=== PATIENT | male | born 1930 | race Caucasian/White ===

== ENCOUNTER 2016-11-25 19:11 | Inpatient (IN) | payer OTHER ==
[~2016-11-25] VITALS: Ht 157.5 cm; Wt 71.2 kg
[~2016-11-25 19:11] MED LIST: COUMADIN,JANTOVE2 MG PO; HYDROCHLOROTHIA25 MG PO; INDERAL10 MG PO; LIPITOR20 MG PO; NORVASC5 MG PO; PRILOSEC40 MG PO
[2016-11-25 20:40] LABS: BASOPHIL COUNT 0.1 K/uL (0-0.1); EOSINOPHIL (%) 2.2 % (0-5); EOSINOPHIL COUNT 0.2 K/uL (0-0.3); HEMATOCRIT 45.8 % (38.0-50.0); IMMATURE GRANULOCYTE (%) 0.7 % (0.0-0.7); IMMATURE GRANULOCYTE COUNT 0.1 K/uL; INSTRUMENT ABS NEUTROPHIL CT 6.7 K/uL; LYMPHOCYTE COUNT 0.9 K/uL (1.0-2.8); MCH 34.1 PG (29.0-34.0); MCHC 34.1 G/DL (30.0-36.0); MCV 100.2 FL (86-99); MEAN PLAT.VOLUME 11.1 uM^3 (9.0-12.4); MONOCYTE (%) 10.3 % (3-12); MONOCYTE COUNT 0.9 K/uL (0-0.8); NEUTROPHIL (%) 75.8 % (45-76); NEUTROPHIL COUNT 6.7 K/uL (1.8-6.4); PLATELET COUNT 263 K/uL (156-360); RBC DIS.WIDTH-CV 13.2 % (11.8-14.6); RBC DIS.WIDTH-SD 49.1 % (39-53); RED BLOOD COUNT 4.57 M/uL (4.00-5.50); WHITE BLOOD COUNT 8.9 K/uL (4.1-10.2)
[2016-11-25 20:50] LABS: CHLORIDE 100 mEq/L (99-109); POTASSIUM 4.1 mEq/L (3.7-5.4); SODIUM 138 mEq/L (136-147)
[2016-11-25 20:51] LABS: GLUCOSE 138 mg/dL (70-99)
[2016-11-25 20:53] LABS: ANION GAP 9 MEQ/L (2-14)
[2016-11-25 20:55] LABS: GFR ESTIMATE (CALCULATED) > 59 mL/min/
[2016-11-25 20:56] LABS: UREA NITROGEN (BUN) 19 mg/dL (9-23)
[2016-11-25 21:02] LABS: TROP-I INTERPRETATION NEGATIVE; TROPONIN-I 0.03 ng/mL (0.0-0.30)
[2016-11-26 00:02] LABS: INTER. NORMALIZED RATIO 3.8
[2016-11-26 00:05] LABS: PTT 56.2 SEC (25-37)
[2016-11-26 00:06] LABS: PROTHROMBIN TIME 44.5 SEC (10.2-12.9)
[2016-11-26] MEDS ORDERED: OMEPRAZOLE20 MG PO (00:10)
[2016-11-26] MEDS ORDERED: FUROSEMIDE40 MG PO (00:11)
[2016-11-26] MEDS ORDERED: LATANOPROST2.5 ML LEFT EYE (00:18)
[2016-11-26] MEDS ORDERED: TIMOLOL MALEATE15 M1 BOTH EYES (00:18)
[2016-11-26] MEDS ORDERED: WARFARIN SODIUM2 MG PO (00:19)
[2016-11-26] MEDS ORDERED: ADVIL200 MG PO (00:23)
[2016-11-26] MEDS ORDERED: POTASSIUM CHLO20 ME1 PO (00:25)
[2016-11-26 01:13] VITALS: BP 135/82
[2016-11-26 03:24] LABS: HEMATOCRIT 41.2 % (38.0-50.0); MCH 35.4 PG (29.0-34.0); MCHC 35.4 G/DL (30.0-36.0); MCV 99.8 FL (86-99); MEAN PLAT.VOLUME 11.3 uM^3 (9.0-12.4); PLATELET COUNT 256 K/uL (156-360); RBC DIS.WIDTH-CV 13.2 % (11.8-14.6); RBC DIS.WIDTH-SD 48.5 % (39-53); RED BLOOD COUNT 4.13 M/uL (4.00-5.50); WHITE BLOOD COUNT 12.3 K/uL (4.1-10.2)
[2016-11-26 03:35] LABS: CHLORIDE 102 mEq/L (99-109); POTASSIUM 3.7 mEq/L (3.7-5.4); SODIUM 140 mEq/L (136-147)
[2016-11-26 03:37] LABS: GLUCOSE 133 mg/dL (70-99)
[2016-11-26 03:38] LABS: ANION GAP 9 MEQ/L (2-14)
[2016-11-26 03:39] LABS: TOTAL BILIRUBIN 1.6 mg/dL (0.0-1.0)
[2016-11-26 03:40] LABS: ALKALINE PHOSPHATASE 160 IU/L (3-129)
[2016-11-26 03:41] LABS: GFR ESTIMATE (CALCULATED) > 59 mL/min/
[2016-11-26 03:42] LABS: UREA NITROGEN (BUN) 19 mg/dL (9-23)
[2016-11-26 03:46] LABS: TROP-I INTERPRETATION NEGATIVE; TROPONIN-I 0.03 ng/mL (0.0-0.30)
[2016-11-26 07:24] VITALS: BP 168/84
[2016-11-26 10:19] LABS: INTER. NORMALIZED RATIO 3.9; PROTHROMBIN TIME 45.8 SEC (10.2-12.9)
[2016-11-26 10:21] LABS: PTT 47.3 SEC (25-37)
[2016-11-26 11:12] VITALS: BP 150/83
[2016-11-26 11:22] LABS: TROP-I INTERPRETATION NEGATIVE; TROPONIN-I 0.04 ng/mL (0.0-0.30)
[2016-11-26 15:13] VITALS: BP 151/86
[2016-11-26 17:07] LABS: INFLUENZA A VIRAL ANTIGEN NEGATIVE; INFLUENZA B VIRAL ANTIGEN NEGATIVE
[2016-11-26 19:51] VITALS: BP 129/65
[2016-11-26 23:55] VITALS: BP 126/69
[2016-11-27 03:41] VITALS: BP 133/65
[2016-11-27 06:07] LABS: HEMATOCRIT 41.4 % (38.0-50.0); MCH 34.5 PG (29.0-34.0); MCHC 34.3 G/DL (30.0-36.0); MCV 100.7 FL (86-99); MEAN PLAT.VOLUME 11.3 uM^3 (9.0-12.4); PLATELET COUNT 253 K/uL (156-360); RBC DIS.WIDTH-CV 13.2 % (11.8-14.6); RED BLOOD COUNT 4.11 M/uL (4.00-5.50); WHITE BLOOD COUNT 10.3 K/uL (4.1-10.2)
[2016-11-27 06:33] LABS: ANION GAP 13 MEQ/L (2-14); CHLORIDE 98 MEQ/L (99-109); GFR ESTIMATE (CALCULATED) > 59 mL/min/; GLUCOSE 106 mg/dL (70-99); POTASSIUM 3.3 MEQ/L (3.7-5.4); SAMPLE HEMOLYSIS CHECK 0; SAMPLE ICTERIC CHECK 0; SAMPLE LIPEMIA CHECK 0; SODIUM 142 MEQ/L (136-147); UREA NITROGEN (BUN) 18 mg/dL (9-23)
[2016-11-27 07:19] VITALS: BP 154/68
[2016-11-27 08:14] LABS: INTERNAL CONTROL VALID? YES
[2016-11-27 10:45] LABS: INTER. NORMALIZED RATIO 2.9
[2016-11-27 10:48] LABS: PROTHROMBIN TIME 33.8 SEC (10.2-12.9)
[2016-11-27 11:15] VITALS: BP 134/87
[2016-11-27 15:15] VITALS: BP 134/64
[2016-11-27 19:44] VITALS: BP 148/64
[2016-11-28] VITALS: BP 117/63
[2016-11-28 03:24] VITALS: BP 142/66
[2016-11-28 06:45] LABS: MCH 34.4 PG (29.0-34.0); MCHC 33.8 G/DL (30.0-36.0); MCV 101.7 FL (86-99); MEAN PLAT.VOLUME 11.4 uM^3 (9.0-12.4); PLATELET COUNT 235 K/uL (156-360); RBC DIS.WIDTH-CV 13.2 % (11.8-14.6); RBC DIS.WIDTH-SD 50.2 % (39-53); RED BLOOD COUNT 4.13 M/uL (4.00-5.50); WHITE BLOOD COUNT 8.8 K/uL (4.1-10.2)
[2016-11-28 06:55] LABS: INTER. NORMALIZED RATIO 2.2; PROTHROMBIN TIME 25.2 SEC (10.2-12.9)
[2016-11-28 07:09] LABS: ANION GAP 8 MEQ/L (2-14); CHLORIDE 101 MEQ/L (99-109); GFR ESTIMATE (CALCULATED) > 59 mL/min/; GLUCOSE 100 mg/dL (70-99); LACTATE DEHYDROGENASE 213 IU/L (20-246); POTASSIUM 3.9 MEQ/L (3.7-5.4); SAMPLE HEMOLYSIS CHECK 0; SAMPLE ICTERIC CHECK 0; SAMPLE LIPEMIA CHECK 0; SODIUM 145 MEQ/L (136-147); UREA NITROGEN (BUN) 20 mg/dL (9-23)
[2016-11-28 08:06] VITALS: BP 122/64
[2016-11-28 11:44] LABS: TYPE OF FLUID PLEURAL
[2016-11-28 12:32] LABS: BODY FLUID EOSINOPHILS 32 % (0-25); BODY FLUID RBC'S < 1000 /MM^3 (0-100); BODY FLUID WBC'S 389 /MM^3 (0-500); COMMENT MANY MACROPHAGES AND MESOTHELIAL CELLS SEEN; MONONUCLEAR WBC'S 47 %; POLYNUCLEAR WBC'S 21 % (0-25)
[2016-11-28 12:41] LABS: BODY FLUID LDH 82 IU/L; BODY FLUID PROTEIN < 3.0 G/DL
[2016-11-28 15:40] VITALS: BP 127/75
[2016-11-28 16:47] LABS: BODY FLUID LDH 86 IU/L
[2016-11-28 20:07] VITALS: BP 125/72
[2016-11-29] VITALS (7 sets, daily range): BP systolic 108–136; BP diastolic 55–80
[2016-11-29 07:09] LABS: INTER. NORMALIZED RATIO 1.6; PROTHROMBIN TIME 17.9 SEC (10.2-12.9)
[2016-11-29 07:13] LABS: ANION GAP 8 MEQ/L (2-14); CHLORIDE 99 MEQ/L (99-109); GFR ESTIMATE (CALCULATED) > 59 mL/min/; GLUCOSE 107 mg/dL (70-99); POTASSIUM 3.5 MEQ/L (3.7-5.4); SAMPLE HEMOLYSIS CHECK 0; SAMPLE ICTERIC CHECK 0; SAMPLE LIPEMIA CHECK 0; SODIUM 142 MEQ/L (136-147); UREA NITROGEN (BUN) 29 mg/dL (9-23)
[2016-11-30 03:44] VITALS: BP 125/66
[2016-11-30 06:42] LABS: BASOPHIL COUNT 0.1 K/uL (0-0.1); EOSINOPHIL (%) 5.8 % (0-5); EOSINOPHIL COUNT 0.6 K/uL (0-0.3); HEMATOCRIT 42.4 % (38.0-50.0); IMMATURE GRANULOCYTE (%) 0.7 % (0.0-0.7); IMMATURE GRANULOCYTE COUNT 0.1 K/uL; INSTRUMENT ABS NEUTROPHIL CT 7.3 K/uL; LYMPHOCYTE COUNT 1.4 K/uL (1.0-2.8); MCH 34.5 PG (29.0-34.0); MCHC 33.5 G/DL (30.0-36.0); MCV 102.9 FL (86-99); MEAN PLAT.VOLUME 11.5 uM^3 (9.0-12.4); MONOCYTE COUNT 1.2 K/uL (0-0.8); NEUTROPHIL (%) 68.5 % (45-76); NEUTROPHIL COUNT 7.3 K/uL (1.8-6.4); PLATELET COUNT 228 K/uL (156-360); RBC DIS.WIDTH-CV 13.1 % (11.8-14.6); RBC DIS.WIDTH-SD 49.8 % (39-53); RED BLOOD COUNT 4.12 M/uL (4.00-5.50); WHITE BLOOD COUNT 10.6 K/uL (4.1-10.2)
[2016-11-30 06:58] LABS: INTER. NORMALIZED RATIO 1.5; PROTHROMBIN TIME 16.7 SEC (10.2-12.9)
[2016-11-30 07:08] LABS: ANION GAP 7 MEQ/L (2-14); CHLORIDE 99 MEQ/L (99-109); GFR ESTIMATE (CALCULATED) > 59 mL/min/; GLUCOSE 111 mg/dL (70-99); SAMPLE HEMOLYSIS CHECK 0; SAMPLE ICTERIC CHECK 0; SAMPLE LIPEMIA CHECK 0; SODIUM 141 MEQ/L (136-147); UREA NITROGEN (BUN) 38 mg/dL (9-23)
[2016-11-30 07:26] LABS: POTASSIUM 4.3 MEQ/L (3.7-5.4)
[2016-11-30 08:10] VITALS: BP 115/57
[2016-11-30 12:23] VITALS: BP 121/55
[2016-11-30 17:10] VITALS: BP 143/62
[2016-11-30 19:37] VITALS: BP 133/66
[2016-11-30 23:35] VITALS: BP 129/59
[2016-12-01] VITALS (7 sets, daily range): BP systolic 110–180; BP diastolic 59–83
[2016-12-01 05:59] LABS: INTER. NORMALIZED RATIO 1.7; PROTHROMBIN TIME 18.5 SEC (10.2-12.9)
[2016-12-01 08:19] LABS: HEMATOCRIT 42.3 % (38.0-50.0); MCH 34.7 PG (29.0-34.0); MCHC 33.6 G/DL (30.0-36.0); MCV 103.4 FL (86-99); MEAN PLAT.VOLUME 11.6 uM^3 (9.0-12.4); PLATELET COUNT 228 K/uL (156-360); RBC DIS.WIDTH-CV 12.9 % (11.8-14.6); RBC DIS.WIDTH-SD 49.9 % (39-53); RED BLOOD COUNT 4.09 M/uL (4.00-5.50)
[2016-12-01 08:29] LABS: ANION GAP 8 MEQ/L (2-14); CHLORIDE 100 MEQ/L (99-109); GFR ESTIMATE (CALCULATED) > 59 mL/min/; GLUCOSE 112 mg/dL (70-99); POTASSIUM 4.8 MEQ/L (3.7-5.4); SAMPLE HEMOLYSIS CHECK 0; SAMPLE ICTERIC CHECK 0; SAMPLE LIPEMIA CHECK 0; SODIUM 142 MEQ/L (136-147); UREA NITROGEN (BUN) 35 mg/dL (9-23)
[2016-12-01 22:27] LABS: BODY FLUID PH 7.9 (())
[2016-12-02 03:28] VITALS: BP 144/67
[2016-12-02 05:54] LABS: INTER. NORMALIZED RATIO 2.1; PROTHROMBIN TIME 23.5 SEC (10.2-12.9)
[2016-12-02 07:40] LABS: HEMATOCRIT 40.9 % (38.0-50.0); MCHC 34.5 G/DL (30.0-36.0); MCV 104.3 FL (86-99); MEAN PLAT.VOLUME 12.1 uM^3 (9.0-12.4); PLATELET COUNT 246 K/uL (156-360); RBC DIS.WIDTH-CV 13.2 % (11.8-14.6); RBC DIS.WIDTH-SD 50.3 % (39-53); RED BLOOD COUNT 3.92 M/uL (4.00-5.50); WHITE BLOOD COUNT 9.2 K/uL (4.1-10.2)
[2016-12-02 07:57] VITALS: BP 142/64
[2016-12-02 11:29] VITALS: BP 116/60
[2016-12-02 15:40] VITALS: BP 126/61
[2016-12-02 20:03] VITALS: BP 117/71
[2016-12-03 00:09] VITALS: BP 114/69
[2016-12-03 03:30] VITALS: BP 110/60
[2016-12-03 05:53] LABS: INTER. NORMALIZED RATIO 2.6; PROTHROMBIN TIME 29.8 SEC (10.2-12.9)
[2016-12-03 08:20] VITALS: BP 116/67
[2016-12-03 12:00] VITALS: BP 137/67
[2016-12-03 15:53] VITALS: BP 127/69
[2016-12-03] MEDS ORDERED: COUMADIN2 MG PO (16:17)
== END 2016-12-03 17:50 | disposition home health service (06) | DRG 291 ==
LOC: EME 19:11 → EDOF 23:21 → 5SOUTH 23:21 → ENRESERV 23:22 → 5SOUTH 11-26 00:48
PROVIDERS: Emergency Medicine; Hospitalist; Internal Medicine; Internal Medicine Pulmonary Disease; Nurse Practitioner Adult Health; Physician Assistant Medical
PROC: 0W993ZZ Drainage of Right Pleural Cavity, Percutaneous Approach (ICD-10-PCS; principal; 2016-11-28)
DX: I11.0 Hypertensive heart disease with heart failure (principal); J18.9 Pneumonia, unspecified organism; J96.01 Acute respiratory failure with hypoxia; I50.43 Acute on chronic combined systolic (congestive) and diastolic (congestive) heart failure; E78.00 Pure hypercholesterolemia, unspecified; G25.0 Essential tremor; I25.2 Old myocardial infarction; I48.2 Chronic atrial fibrillation; J98.11 Atelectasis; K21.9 Gastro-esophageal reflux disease without esophagitis; Z74.01 Bed confinement status; Z79.01 Long term (current) use of anticoagulants; I34.0 Nonrheumatic mitral (valve) insufficiency; I49.3 Ventricular premature depolarization; I47.2 Ventricular tachycardia
CPT/HCPCS: 71010; 71020; 71250; 76942; 80048; 80053; 82945; 83605; 83615; 83615 91; 83735; 83880; 83986 90; 84155; 84157; 84484; 85025; 85027; 85610; 85730; 87040; 87070; 87116; 87205; 87206; 87449; 87502; 88108; 88305; 89051; 90686; 93005; 94010; 94799; 97530 GO; 99202; 99281; 99285; J0696; J1940; J3475; J7050

== ENCOUNTER → 2017-04-15 | Outpatient (CLI) | payer OTHER ==
[~2017-04-15] MED LIST changes: +ADVIL200 MG PO; +COMBIGAN O20 DROP/5 BOTH EYES; +COUMADIN2 MG PO; +FUROSEMIDE40 MG PO; +LATANOPROST2.5 ML LEFT EYE; +OMEPRAZOLE20 MG PO; +POTASSIUM CHLO20 ME1 PO; +TIMOLOL MALEATE15 M1 BOTH EYES; +WARFARIN SODIUM2 MG PO
[2017-04-15 11:33] LABS: TYPE OF FLUID PLEURAL
[2017-04-15 11:53] LABS: APPEARANCE SL. HAZY-YELLOW; BODY FLUID RBC'S < 1000 /MM^3 (0-100); BODY FLUID WBC'S 124 /MM^3 (0-500)
[2017-04-15 12:58] LABS: BODY FLUID EOSINOPHILS 0 % (0-25); MONONUCLEAR WBC'S 43 %; POLYNUCLEAR WBC'S 57 % (0-25)
[2017-04-15 14:00] LABS: BODY FLUID GLUCOSE 149 MG/DL; BODY FLUID LDH 63 IU/L; BODY FLUID PROTEIN < 3.0 G/DL
== END | disposition home or self-care (01) ==
LOC: RAD 10:28 → EDSTATUS 11:00 → RAD 11:00
PROVIDERS: Nurse Practitioner Acute Care
PROC: 0W993ZZ Drainage of Right Pleural Cavity, Percutaneous Approach (ICD-10-PCS; principal; 2017-04-15)
DX: J90 Pleural effusion, not elsewhere classified (principal)
CPT/HCPCS: 76942; 82945; 83615 91; 84157; 87070; 87116; 87205; 87206; 88108; 88305; 89051

== ENCOUNTER 2017-04-18 20:22 | Inpatient (IN) | payer OTHER ==
[~2017-04-18] VITALS: Ht 167.6 cm; Wt 53.3 kg
[~2017-04-18 20:22] MED LIST changes: -COMBIGAN O20 DROP/5 BOTH EYES
[2017-04-18 21:02] LABS: BASE EXCESS -3.7 mEq/L (-3 to +3); BICARBONATE 23.1 mEq/L (22-26); PCO2 47 mm Hg (35-45); PO2 116 mm Hg (80-100)
[2017-04-18 21:03] LABS: COMMENTS - BLOOD GASES A+C+; DEVICE MASK VENT; FI02 100 %; MODE SPONT NIV; PEEP 5 CM/H20; PRES. SUPPORT 15 CM/H2O; SITE RR; TOTAL RESP RATE 25 resp/min
[2017-04-18 21:22] LABS: BASOPHIL (%) 0.2 % (0-1); EOSINOPHIL (%) 0.1 % (0-5); HEMATOCRIT 46.1 % (38.0-50.0); HEMOGLOBIN 15.3 G/DL (12.5-16.6); IMMATURE GRANULOCYTE (%) 0.7 % (0.0-0.7); LYMPHOCYTE (%) 5.7 % (15-42); LYMPHOCYTE COUNT 0.6 K/uL (1.0-2.8); MCH 35.5 PG (29.0-34.0); MCHC 33.2 G/DL (30.0-36.0); MONOCYTE (%) 5.5 % (3-12); MONOCYTE COUNT 0.6 K/uL (0-0.8); NEUTROPHIL (%) 87.8 % (45-76); NEUTROPHIL COUNT 9.4 K/uL (1.8-6.4); NRBC (%) 0.2 /100 WBC (0-0); PLATELET COUNT 245 K/uL (156-360); RBC DIS.WIDTH-CV 12.9 % (11.8-14.6); RBC DIS.WIDTH-SD 51.1 % (39-53); RED BLOOD COUNT 4.31 M/uL (4.00-5.50); WHITE BLOOD COUNT 10.7 K/uL (4.1-10.2)
[2017-04-18 21:35] LABS: ALBUMIN 4.2 g/dL (3.2-4.8); CHLORIDE 105 mEq/L (99-109); SODIUM 139 mEq/L (136-147)
[2017-04-18 21:37] LABS: GLUCOSE 147 mg/dL (70-99); TOTAL PROTEIN 7.8 g/dL (6.4-8.3)
[2017-04-18 21:39] LABS: TOTAL BILIRUBIN 1.8 mg/dL (0.0-1.0)
[2017-04-18 21:41] LABS: ALKALINE PHOSPHATASE 149 IU/L (3-129); CREATININE 1.8 mg/dL (0.6-1.3); GFR ESTIMATE (CALCULATED) 38 mL/min/ (58.99-99999)
[2017-04-18 21:42] LABS: UREA NITROGEN (BUN) 50 mg/dL (9-23)
[2017-04-18 21:43] LABS: AST (GOT) 24 IU/L (2-34)
[2017-04-18 21:44] LABS: ALT (GPT) 26 IU/L (3-49)
[2017-04-18 21:46] LABS: TROP-I INTERPRETATION POSITIVE
[2017-04-18 21:51] LABS: POTASSIUM 6.4 mEq/L (3.7-5.4)
[2017-04-18 21:53] LABS: TROPONIN-I 0.84 ng/mL (0.0-0.30)
[2017-04-18] MEDS ORDERED: COMBIGAN O20 DROP/5 BOTH EYES (22:03)
[2017-04-18 22:05] LABS: PTT 35.3 SEC (25-37)
[2017-04-19 01:38] LABS: TROP-I INTERPRETATION POSITIVE
[2017-04-19 01:41] LABS: TROPONIN-I 0.67 ng/mL (0.0-0.30)
[2017-04-19 03:30] VITALS: BP 122/63
[2017-04-19 08:41] LABS: MCH 35.5 PG (29.0-34.0); MCHC 33.3 G/DL (30.0-36.0); MCV 106.6 FL (86-99); PLATELET COUNT 219 K/uL (156-360); RBC DIS.WIDTH-CV 13.1 % (11.8-14.6); RBC DIS.WIDTH-SD 51.2 % (39-53); RED BLOOD COUNT 4.22 M/uL (4.00-5.50); WHITE BLOOD COUNT 11.3 K/uL (4.1-10.2)
[2017-04-19 08:47] LABS: INTER. NORMALIZED RATIO 2.3
[2017-04-19 08:54] VITALS: BP 117/58
[2017-04-19 09:04] LABS: TROP-I INTERPRETATION POSITIVE; TROPONIN-I 0.79 ng/mL (0.0-0.30)
[2017-04-19 09:05] LABS: ALBUMIN 3.5 G/DL (3.2-4.8); ALKALINE PHOSPHATASE 116 IU/L (3-129); ALT (GPT) 17 IU/L (3-49); AST (GOT) 20 IU/L (2-34); CHLORIDE 105 MEQ/L (99-109); CREATININE 1.5 MG/DL (0.6-1.3); GFR ESTIMATE (CALCULATED) 47 mL/min/ (58.99-99999); SODIUM 143 MEQ/L (136-147); TOTAL BILIRUBIN 1.5 MG/DL (0.0-1.0); TOTAL PROTEIN 6.8 G/DL (6.4-8.3); UREA NITROGEN (BUN) 49 mg/dL (9-23)
[2017-04-19 09:09] LABS: GLUCOSE 93 mg/dL (70-99)
[2017-04-19 15:04] LABS: TROP-I INTERPRETATION POSITIVE; TROPONIN-I 0.66 ng/mL (0.0-0.30)
[2017-04-19 16:10] VITALS: BP 122/64
[2017-04-19 19:11] VITALS: BP 119/66
[2017-04-20 00:13] VITALS: BP 120/60
[2017-04-20 04:11] VITALS: BP 145/63
[2017-04-20 05:41] LABS: INTER. NORMALIZED RATIO 2.7
[2017-04-20 07:30] VITALS: BP 127/73
[2017-04-20 09:44] LABS: CHLORIDE 105 MEQ/L (99-109); POTASSIUM 5.2 MEQ/L (3.7-5.4); SODIUM 144 MEQ/L (136-147)
[2017-04-20 09:52] LABS: CREATININE 1.3 MG/DL (0.6-1.3); GFR ESTIMATE (CALCULATED) 55 mL/min/ (58.99-99999); GLUCOSE 144 mg/dL (70-99); UREA NITROGEN (BUN) 43 mg/dL (9-23)
[2017-04-20 11:44] VITALS: BP 108/57
[2017-04-20 16:07] VITALS: BP 154/90
[2017-04-20 19:17] VITALS: BP 143/86
[2017-04-21 00:20] VITALS: BP 115/70
[2017-04-21 03:44] VITALS: BP 108/70
[2017-04-21 05:41] LABS: INTER. NORMALIZED RATIO 2.8
[2017-04-21 05:48] LABS: CHLORIDE 102 MEQ/L (99-109); CREATININE 1.2 MG/DL (0.6-1.3); GFR ESTIMATE (CALCULATED) > 59 mL/min/ (58.99-99999); SODIUM 141 MEQ/L (136-147); UREA NITROGEN (BUN) 36 mg/dL (9-23)
[2017-04-21 06:01] LABS: GLUCOSE 103 mg/dL (70-99); POTASSIUM 3.8 MEQ/L (3.7-5.4)
[2017-04-21 08:02] VITALS: BP 144/75
[2017-04-21 11:37] VITALS: BP 135/61
[2017-04-21 17:06] VITALS: BP 151/64
[2017-04-21 19:00] VITALS: BP 121/94
[2017-04-22] VITALS (7 sets, daily range): BP systolic 121–164; BP diastolic 58–110
[2017-04-22 06:39] LABS: CHLORIDE 105 MEQ/L (99-109); CREATININE 1.1 MG/DL (0.6-1.3); GFR ESTIMATE (CALCULATED) > 59 mL/min/ (58.99-99999); GLUCOSE 121 mg/dL (70-99); POTASSIUM 4.1 MEQ/L (3.7-5.4); SODIUM 143 MEQ/L (136-147); UREA NITROGEN (BUN) 27 mg/dL (9-23)
[2017-04-22 06:41] LABS: INTER. NORMALIZED RATIO 2.2
[2017-04-23 03:25] VITALS: BP 115/55
[2017-04-23 05:45] LABS: INTER. NORMALIZED RATIO 2.3
[2017-04-23 08:33] VITALS: BP 127/59
[2017-04-23 08:57] LABS: HEMATOCRIT 42.4 % (38.0-50.0); MCH 34.8 PG (29.0-34.0); MCV 105.5 FL (86-99); PLATELET COUNT 185 K/uL (156-360); RBC DIS.WIDTH-CV 12.9 % (11.8-14.6); RBC DIS.WIDTH-SD 49.4 % (39-53); RED BLOOD COUNT 4.02 M/uL (4.00-5.50); WHITE BLOOD COUNT 8.5 K/uL (4.1-10.2)
[2017-04-23 09:07] LABS: CHLORIDE 102 MEQ/L (99-109); GFR ESTIMATE (CALCULATED) > 59 mL/min/ (58.99-99999); GLUCOSE 102 mg/dL (70-99); POTASSIUM 3.8 MEQ/L (3.7-5.4); SODIUM 143 MEQ/L (136-147); UREA NITROGEN (BUN) 19 mg/dL (9-23)
[2017-04-23 11:06] VITALS: BP 137/89
[2017-04-23 15:10] VITALS: BP 139/91
[2017-04-23 19:30] VITALS: BP 107/71
[2017-04-23 23:34] VITALS: BP 100/52
[2017-04-24 03:30] VITALS: BP 105/58
[2017-04-24 05:36] LABS: BASOPHIL (%) 0.6 % (0-1); BASOPHIL COUNT 0.1 K/uL (0-0.1); EOSINOPHIL (%) 3.2 % (0-5); EOSINOPHIL COUNT 0.3 K/uL (0-0.3); HEMATOCRIT 42.1 % (38.0-50.0); HEMOGLOBIN 14.2 G/DL (12.5-16.6); IMMATURE GRANULOCYTE (%) 0.6 % (0.0-0.7); LYMPHOCYTE (%) 12.1 % (15-42); LYMPHOCYTE COUNT 1.1 K/uL (1.0-2.8); MCH 34.8 PG (29.0-34.0); MCHC 33.7 G/DL (30.0-36.0); MCV 103.2 FL (86-99); MONOCYTE (%) 9.9 % (3-12); MONOCYTE COUNT 0.9 K/uL (0-0.8); NEUTROPHIL (%) 73.6 % (45-76); NEUTROPHIL COUNT 6.5 K/uL (1.8-6.4); PLATELET COUNT 210 K/uL (156-360); RBC DIS.WIDTH-CV 12.9 % (11.8-14.6); RBC DIS.WIDTH-SD 48.4 % (39-53); RED BLOOD COUNT 4.08 M/uL (4.00-5.50); WHITE BLOOD COUNT 8.8 K/uL (4.1-10.2)
[2017-04-24 06:00] LABS: INTER. NORMALIZED RATIO 2.3
[2017-04-24 06:01] LABS: CHLORIDE 103 MEQ/L (99-109); GFR ESTIMATE (CALCULATED) > 59 mL/min/ (58.99-99999); GLUCOSE 112 mg/dL (70-99); POTASSIUM 3.9 MEQ/L (3.7-5.4); SODIUM 140 MEQ/L (136-147); UREA NITROGEN (BUN) 21 mg/dL (9-23)
[2017-04-24 08:32] VITALS: BP 122/59
[2017-04-24 11:23] VITALS: BP 105/52
[2017-04-24 15:54] LABS: TYPE OF FLUID PLEURAL
[2017-04-24 16:30] VITALS: BP 130/61
[2017-04-24 16:51] LABS: BODY FLUID GLUCOSE 138 MG/DL; BODY FLUID LDH 159 IU/L; BODY FLUID PROTEIN < 3.0 G/DL
[2017-04-24 16:51] LABS: GLUCOSE 103 mg/dL (70-99); LACTATE DEHYDROGENASE 209 IU/L (20-246)
[2017-04-24 16:52] LABS: TOTAL PROTEIN 5.5 G/DL (6.4-8.3)
[2017-04-24 17:48] LABS: APPEARANCE CLEAR-YELLOW; BODY FLUID EOSINOPHILS 8 % (0-25); BODY FLUID RBC'S 1000 /MM^3 (0-100); BODY FLUID WBC'S 378 /MM^3 (0-500); MONONUCLEAR WBC'S 73 %; POLYNUCLEAR WBC'S 20 % (0-25)
[2017-04-24 17:49] LABS: COMMENT FEW MACROPHAGES SEEN
[2017-04-24 19:30] VITALS: BP 93/50
[2017-04-24 23:43] VITALS: BP 102/59
[2017-04-25 02:30] VITALS: BP 93/50
[2017-04-25 06:39] LABS: INTER. NORMALIZED RATIO 2.1
[2017-04-25 08:53] VITALS: BP 94/57
[2017-04-25 09:44] LABS: FOLIC ACID (FOLATE) 22.1 NG/ML (5.0-22.0)
[2017-04-25 11:32] VITALS: BP 80/50
[2017-04-25 14:14] VITALS: BP 105/50
[2017-04-25 15:47] VITALS: BP 101/59
[2017-04-25 20:00] VITALS: BP 82/49
[2017-04-26 00:04] VITALS: BP 105/51
[2017-04-26 04:39] VITALS: BP 103/56
[2017-04-26 06:21] LABS: BASOPHIL (%) 0.6 % (0-1); BASOPHIL COUNT 0.1 K/uL (0-0.1); EOSINOPHIL (%) 3.4 % (0-5); EOSINOPHIL COUNT 0.3 K/uL (0-0.3); HEMATOCRIT 42.6 % (38.0-50.0); HEMOGLOBIN 14.2 G/DL (12.5-16.6); IMMATURE GRANULOCYTE (%) 0.7 % (0.0-0.7); LYMPHOCYTE COUNT 1.1 K/uL (1.0-2.8); MCHC 33.3 G/DL (30.0-36.0); MCV 101.9 FL (86-99); MONOCYTE (%) 8.4 % (3-12); MONOCYTE COUNT 0.7 K/uL (0-0.8); NEUTROPHIL (%) 73.9 % (45-76); NEUTROPHIL COUNT 6.1 K/uL (1.8-6.4); PLATELET COUNT 205 K/uL (156-360); RBC DIS.WIDTH-SD 48.1 % (39-53); RED BLOOD COUNT 4.18 M/uL (4.00-5.50); WHITE BLOOD COUNT 8.2 K/uL (4.1-10.2)
[2017-04-26 06:59] LABS: CHLORIDE 106 MEQ/L (99-109); GFR ESTIMATE (CALCULATED) > 59 mL/min/ (58.99-99999); GLUCOSE 105 mg/dL (70-99); POTASSIUM 3.8 MEQ/L (3.7-5.4); SODIUM 141 MEQ/L (136-147); UREA NITROGEN (BUN) 24 mg/dL (9-23)
[2017-04-26 07:38] VITALS: BP 96/60
[2017-04-26 16:48] VITALS: BP 116/74
[2017-04-26 19:30] VITALS: BP 90/53
[2017-04-26 23:15] VITALS: BP 95/50
[2017-04-27 03:30] VITALS: BP 126/58
[2017-04-27 06:24] LABS: INTER. NORMALIZED RATIO 1.8
[2017-04-27 06:25] LABS: BASOPHIL (%) 0.9 % (0-1); BASOPHIL COUNT 0.1 K/uL (0-0.1); EOSINOPHIL (%) 3.8 % (0-5); EOSINOPHIL COUNT 0.3 K/uL (0-0.3); HEMATOCRIT 42.4 % (38.0-50.0); IMMATURE GRANULOCYTE (%) 0.6 % (0.0-0.7); LYMPHOCYTE COUNT 1.1 K/uL (1.0-2.8); MCH 34.4 PG (29.0-34.0); MCV 104.2 FL (86-99); MONOCYTE (%) 9.6 % (3-12); MONOCYTE COUNT 0.8 K/uL (0-0.8); NEUTROPHIL (%) 71.1 % (45-76); NEUTROPHIL COUNT 5.8 K/uL (1.8-6.4); PLATELET COUNT 183 K/uL (156-360); RBC DIS.WIDTH-CV 12.9 % (11.8-14.6); RBC DIS.WIDTH-SD 49.3 % (39-53); RED BLOOD COUNT 4.07 M/uL (4.00-5.50); WHITE BLOOD COUNT 8.1 K/uL (4.1-10.2)
[2017-04-27 06:56] LABS: CHLORIDE 106 MEQ/L (99-109); CREATININE 1.3 MG/DL (0.6-1.3); GFR ESTIMATE (CALCULATED) 55 mL/min/ (58.99-99999); GLUCOSE 126 mg/dL (70-99); SODIUM 139 MEQ/L (136-147); UREA NITROGEN (BUN) 30 mg/dL (9-23)
[2017-04-27 07:00] LABS: POTASSIUM 4.7 MEQ/L (3.7-5.4)
[2017-04-27 08:53] VITALS: BP 121/55
[2017-04-27] MEDS ORDERED: CARVEDILOL3.125 MG PO (10:54)
[2017-04-27] MEDS ORDERED: ASPIR-LOW81 MG PO (10:55)
[2017-04-27] MEDS ORDERED: FUROSEMIDE40 MG PO (10:56)
[2017-04-27] MEDS ORDERED: ACETAMINOPHEN-1 EAC1 PO (10:56)
[2017-04-27] MEDS ORDERED: FUROSEMIDE20 MG PO (11:00)
[2017-04-27 12:31] VITALS: BP 113/60
[2017-04-27 16:44] VITALS: BP 113/69
[2017-04-27 19:42] VITALS: BP 110/62
[2017-04-27 23:54] VITALS: BP 112/67
[2017-04-28 04:58] VITALS: BP 145/76
[2017-04-28 05:42] LABS: INTER. NORMALIZED RATIO 1.6
[2017-04-28 08:31] VITALS: BP 112/61
[2017-04-28 10:49] LABS: CHLORIDE 102 MEQ/L (99-109); GFR ESTIMATE (CALCULATED) > 59 mL/min/ (58.99-99999); GLUCOSE 195 mg/dL (70-99); POTASSIUM 4.5 MEQ/L (3.7-5.4); SODIUM 137 MEQ/L (136-147); UREA NITROGEN (BUN) 27 mg/dL (9-23)
[2017-04-28 12:43] VITALS: BP 103/54
[2017-04-28 16:09] VITALS: BP 114/62
[2017-04-28 20:55] VITALS: BP 125/67
[2017-04-29 02:00] VITALS: BP 113/55
[2017-04-29 04:35] VITALS: BP 113/61
[2017-04-29 05:35] LABS: INTER. NORMALIZED RATIO 1.6
[2017-04-29 08:05] VITALS: BP 115/61
[2017-04-29 11:33] VITALS: BP 101/49
[2017-04-29 15:05] VITALS: BP 118/59
== END 2017-04-29 18:21 | DRG 199 ==
LOC: EME → EDBD 20:22 → 4EAST 04-19 01:47 → EDOF 04-19 01:47 → ENRESERV 04-19 01:48 → 4EAST 04-19 03:14
PROVIDERS: Emergency Medicine; Hospitalist; Internal Medicine
PROC: 0W9930Z Drainage of Right Pleural Cavity with Drainage Device, Percutaneous Approach (ICD-10-PCS; principal; 2017-04-18)
PROC: 5A09357 Assistance with Respiratory Ventilation, Less than 24 Consecutive Hours, Continuous Positive Airway Pressure (ICD-10-PCS; 2017-04-18)
PROC: 0W9930Z Drainage of Right Pleural Cavity with Drainage Device, Percutaneous Approach (ICD-10-PCS; 2017-04-24)
PROC: 0W9930Z Drainage of Right Pleural Cavity with Drainage Device, Percutaneous Approach (ICD-10-PCS; 2017-04-26)
DX: J95.811 Postprocedural pneumothorax (principal); I50.33 Acute on chronic diastolic (congestive) heart failure; J90 Pleural effusion, not elsewhere classified; J96.21 Acute and chronic respiratory failure with hypoxia; I95.9 Hypotension, unspecified; N17.9 Acute kidney failure, unspecified; I24.8 Other forms of acute ischemic heart disease; I48.2 Chronic atrial fibrillation; I42.9 Cardiomyopathy, unspecified; E86.0 Dehydration; E87.5 Hyperkalemia; I13.0 Hypertensive heart and chronic kidney disease with heart failure and stage 1 through stage 4 chronic kidney disease, or unspecified chronic kidney disease; N18.9 Chronic kidney disease, unspecified; J44.9 Chronic obstructive pulmonary disease, unspecified; I47.2 Ventricular tachycardia; I08.3 Combined rheumatic disorders of mitral, aortic and tricuspid valves; I27.20 Pulmonary hypertension, unspecified; G20 Parkinson's disease; J98.11 Atelectasis; E78.5 Hyperlipidemia, unspecified; H40.9 Unspecified glaucoma; Z53.9 Procedure and treatment not carried out, unspecified reason; Z66 Do not resuscitate; Z99.81 Dependence on supplemental oxygen; I25.2 Old myocardial infarction; Z79.01 Long term (current) use of anticoagulants
CPT/HCPCS: 32557; 32560; 36600; 71045; 71046; 71250; 76604; 80048; 80053; 82607; 82746; 82803; 82945; 82947 91; 82948; 83605; 83615; 83615 91; 83735; 83880; 83986 90; 84155; 84157; 84484; 85025; 85027; 85610; 85730; 87070; 87075; 87116; 87205; 87206; 88108; 88305; 88312; 89051; 93005; 93306; 94002; 94640; 94640 76; 94799; 97530 GO; 97530 GP; 99281; 99285; C1729; C1769; J0610; J3010; J7030; J7040; J7050; J7644